=== PATIENT | female | born 1980 | race African-American/Black ===

== ENCOUNTER 2019-11-18 11:52 | Day surgery (SDC) | payer OTHER ==
[2019-11-17 10:28] VITALS: BMI 28.7
[2019-11-18] MEDS ORDERED: Lidocaine 1% PF 5 ML VIAL ONE (14:35)
[2019-11-18] MEDS ORDERED: Ondansetron PF 4 MG/2 ML Vial ONE (14:35)
[2019-11-18] MEDS ORDERED: Midazolam HCl 2 mg/2 ml Vial ONE (14:35)
[2019-11-18] MEDS ORDERED: PHENYLEPHRINE-NS 100 MCG/ML 10 ML SYRINGE ONE (14:35)
[2019-11-18] MEDS ORDERED: Rocuronium Bromide 10 MG/ML (10ML VIAL) ONE (14:35)
[2019-11-18] MEDS ORDERED: PROPOFOL 200 MG/20 ML VIAL ONE (14:35)
[2019-11-18] MEDS ORDERED: Ketorolac Tromethamine 30 MG/ML VIAL ONE (14:35)
[2019-11-18] MEDS ORDERED: Succinylcholine Chloride 20 MG/ML 10 ml SYRINGE FS ONE (14:35)
[2019-11-18] MEDS ORDERED: Dexamethasone 20 MG/5 ML VIAL ONE (14:35)
[2019-11-18] MEDS ORDERED: Acetaminophen 500 MG TAB ONE (14:35)
[2019-11-18 14:45] LABS: Anion Gap 12 mmol/L (10-20); BUN (Urea Nitrogen) 12 mg/dL (7.0-18.7); Calc. Creatinine Clearance 88 mL/min (70-130); Carbon Dioxide 23 mmol/L (22-29); Chloride 109 mmol/L (98-107); Estimated GFR-MDRD 78; Glucose 76 mg/dL (70-105); Potassium 3.9 mmol/L (3.5-5.1); Sodium 140 mmol/L (136-145)
[2019-11-18] MEDS ORDERED: Lactated Ringer's 500 ML IV SCH (14:45)
[2019-11-18] MEDS ORDERED: Bicitra 30 ML UDCUP PO SCH (14:45)
[2019-11-18 14:57] LABS: Hemoglobin 11.2 g/dL (12.0-16.0); Mean Corpuscular HGB CONC 34.3 g/dL (32.0-36.0); Mean Corpuscular Hemoglobin 29.8 pg (27.0-31.0); Mean Corpuscular Volume 86.9 fL (78.0-98.0); Platelet Count 460 thou/uL (130-400); RBC Distribution Width 16.8 % (11.5-14.5); Red Blood Cell (RBC) Count 3.76 mill/uL (4.20-5.40); White Blood Cell (WBC) Count 11.8 thou/uL (4.8-10.8)
[2019-11-18 15:03] LABS: Band 5 % (5-11); Eosinophils 2 % (0-10); Lymphocytes 16 % (21-51); MDiff Complete? YES; Monocytes 7 % (0-10); Neutrophil 63 % (42-75); Platelet Morphology Comment Appears Increased; Polychromasia MODERATE = 3-4 cells (100X) (0-2/hpf); Reactive Lymphocytes 7 % (0-10); Target Cells MODERATE= 6-15 cells (100X) (0-1/hpf); Tear Drops SLIGHT = 2-5 cells (100X) (0-1/hpf)
[2019-11-18] MEDS ORDERED: Lidocaine 1% w/Epinephrine 1:100K 20 ML VIAL ONE (15:14)
[2019-11-18] MEDS ORDERED: Bupivacaine 0.25% HCL 30 ML VIAL ONE (15:14)
[2019-11-18] MEDS ORDERED: Fentanyl 100 MCG/2 ML VIAL ONE (15:15)
[2019-11-18] MEDS ORDERED: SUGAMMADEX SODIUM 200 MG/2 ML VIAL ONE (16:02)
--- NOTE | 2019-11-19 13:41 | OP ---
DATE OF PROCEDURE: 11/18/2019 PREOPERATIVE DIAGNOSIS: Incisional umbilical hernia. POSTOPERATIVE DIAGNOSIS: Incisional umbilical hernia. PROCEDURES PERFORMED: Repair of incisional hernia with a 6.4 cm Ventralex mesh patch. ANESTHESIA: General endotracheal. INDICATIONS: Patient is a 39-year-old black female. She previously had a surgery in treatment of a tubal . She has subsequently developed a sizable hernia centered on the infraumbilical incision from her prior surgery. She is taken to the operating room at this time for repair of this. DESCRIPTION OF OPERATION: Informed consent was obtained. Patient was taken to the operating room, where general anesthesia was obtained with the patient in supine position. Abdomen prepped with ChloraPrep and draped in a sterile fashion. Local anesthetic was infiltrated using a mixture of 1% lidocaine with epinephrine and 0.25% Marcaine. A curvilinear infraumbilical incision was created and dissection carried through skin and subcutaneous tissue. Dissection was carried deeply but immediately encountered the sizable hernia sac. There was bowel within this. The hernia sac was opened and dissected back to the fascial edges. Bowel contents were reduced. The umbilicus was dissected off the fascia and reflected superiorly. A preperitoneal dissection was then carried out within the abdomen, elevating the peritoneum off the fascia. A 6.4 cm Ventralex mesh patch was obtained and placed in the preperitoneal space. The tails of the mesh patch were secured to the anterior fascia superiorly and inferiorly using interrupted sutures of 0 Prolene. The lateral aspects of the defect were closed using interrupted sutures of 0 Prolene, which incorporated bites of the anterior leaflet of the mesh patch. The umbilicus was then secured down to the fascia with interrupted two interrupted sutures of 3-0 Vicryl. The remainder of the wound closed in layers with 3-0 and 4-0 Monocryl. Dermabond was placed externally. A compression cotton ball dressing was then created in usual fashion. There were no complications. Blood loss was negligible. Patient tolerated the procedure well and was taken to Recovery in stable condition. Job ID: [id number]
== END 2019-11-18 18:35 | disposition home or self-care (01) ==
LOC: EEVIPCON 11:52 → SDC 11:52
PROVIDERS: ATTEND Specialist
PROC: 0WUF0JZ Supplement Abdominal Wall with Synthetic Substitute, Open Approach (ICD-10-PCS; principal; 2019-11-18)
DX: K43.2 Incisional hernia without obstruction or gangrene (principal); F41.9 Anxiety disorder, unspecified; F32.9 Major depressive disorder, single episode, unspecified; I10 Essential (primary) hypertension; Z79.899 Other long term (current) drug therapy; Z91.040 Latex allergy status
CPT/HCPCS: 80048; 85025; J0690; J1100; J1885; J2001; J2250; J2405; J2704; J3010; S0020